=== PATIENT | female | born 2005 | race African-American/Black ===

== ENCOUNTER 2023-07-15 10:31 | Emergency (ER) | payer OTHER ==
[~2023-07-15] VITALS: Ht 149.9 cm; Wt 77.1 kg
== END 2023-07-15 12:31 | disposition home or self-care (01) ==
LOC: ER 10:32 → EMR PED 10:32
DX: S01.85XA Open bite of other part of head, initial encounter (principal); W54.0XXA Bitten by dog, initial encounter; Y93.89 Activity, other specified; Y92.89 Other specified places as the place of occurrence of the external cause; Y99.8 Other external cause status